=== PATIENT | female | born 1940 | race African-American/Black ===

== ENCOUNTER 2017-12-17 09:56 | Emergency (ER) | payer OTHER ==
[~2017-12-17] VITALS: Ht 167.6 cm; Wt 82.0 kg
[2017-12-17] MEDS ORDERED: DABI75CA3 PO (10:00)
[2017-12-17 10:55] LABS: BASOPHILS % 0.7 % (0.0-2.0); EOSINOPHILS % 1.8 % (0.0-5.0); HEMATOCRIT. 33.1 % (36.0-48.0); HEMOGLOBIN. 10.9 g/dL (12.0-16.0); LYMPHOCYTES % 24.8 % (20.0-50.0); MEAN CORPUSCULAR HEMOGLOBIN 28.6 pg (28.0-32.0); MEAN PLATELET VOLUME 8.2 fl (7.4-10.4); NEUTROPHILS % 64.7 % (40.0-76.0); PLATELET 194 x1000/uL (130-400); RED CELL DISTRIBUTION WIDTH 13.7 % (11.6-14.6)
[2017-12-17 11:04] LABS: CHLORIDE 107 mEq/L (98-107)
[2017-12-17 14:04] VITALS: BP 160/73
== END 2017-12-17 14:10 | disposition home or self-care (01) ==
LOC: ER 10:06
DX: R42 Dizziness and giddiness (principal); R44.2 Other hallucinations; E03.9 Hypothyroidism, unspecified; R00.1 Bradycardia, unspecified; I51.7 Cardiomegaly; R03.0 Elevated blood-pressure reading, without diagnosis of hypertension; D64.9 Anemia, unspecified
CPT/HCPCS: 36415; 71045; 83880; 84484; 93005; 99285